=== PATIENT | male | born 1970 | race Hispanic/Latino ===

== ENCOUNTER → 2020-09-06 | Outpatient (CLI) | payer OTHER | END | disposition home or self-care (01) | LOC: LAB 06:58 | PROVIDERS: ATTEND Internal Medicine Gastroenterology | DX: C20 Malignant neoplasm of rectum (principal); Z20.822 Contact with and (suspected) exposure to COVID-19 | CPT/HCPCS: 36415; 82378; C9803; U0003 ==

== ENCOUNTER 2020-09-11 06:33 | Day surgery (SDC) | payer OTHER ==
[~2020-09-11] VITALS: Ht 170.2 cm; Wt 117.0 kg
[~2020-09-11 06:33] MED LIST: BUPR-93 PO; CETI-89 PO; LOSA100T58 PO; MELO-106 PO; METF-527 PO; MULT-1367 PO; OMEP-420 PO; SEMA3TAB PO; SODIUM CHLORIDE 0.9% 1000ML 1,000 ML IV ONE
[2020-09-11 07:30] VITALS: BP 129/89
[2020-09-11] MEDS ORDERED: PROPOFOL 10 MG/ML 20ML VIAL IV ONE (09:52)
[2020-09-11 10:10] VITALS: BP 103/56
[2020-09-11 10:15] VITALS: BP 101/61
[2020-09-11 10:20] VITALS: BP 110/68
[2020-09-11 10:25] VITALS: BP 112/68
[2020-09-11 10:30] VITALS: BP 124/68
== END 2020-09-11 10:35 | disposition home or self-care (01) ==
LOC: DAH 06:33 → ENDO 06:33
PROVIDERS: ATTEND Internal Medicine Gastroenterology
DX: C20 Malignant neoplasm of rectum (principal); C21.8 Malignant neoplasm of overlapping sites of rectum, anus and anal canal; I10 Essential (primary) hypertension; K21.9 Gastro-esophageal reflux disease without esophagitis; E66.01 Morbid (severe) obesity due to excess calories; E11.9 Type 2 diabetes mellitus without complications; G47.30 Sleep apnea, unspecified; Z79.84 Long term (current) use of oral hypoglycemic drugs; Z79.899 Other long term (current) drug therapy; K22.70 Barrett's esophagus without dysplasia
CPT/HCPCS: 45341; 82948; A4215; A4221; A4222; A4223; A4335; A4458; A4606; A4620; A4663; J2704; J7030

== ENCOUNTER → 2020-09-19 | Outpatient (CLI) | payer OTHER ==
[~2020-09-19] MED LIST changes: +IOHEXOL 350 MG/ML 100ML INFUS..BTL IV ONE; -SODIUM CHLORIDE 0.9% 1000ML 1,000 ML IV ONE
== END | disposition home or self-care (01) ==
LOC: RAH 07:41 → EDUNIT# 08:00
PROVIDERS: ATTEND Internal Medicine Gastroenterology
DX: C20 Malignant neoplasm of rectum (principal); K44.9 Diaphragmatic hernia without obstruction or gangrene
CPT/HCPCS: 71270; 74178; Q9967